=== PATIENT | male | born 1980 | race Caucasian/White ===

== ENCOUNTER 2017-09-08 18:24 | Emergency (ER) | payer SELFPAY ==
[~2017-09-08] VITALS: Ht 177.8 cm; Wt 95.9 kg
[2017-09-08 18:29] VITALS: Ht 177.8 cm; Wt 95.9 kg
[2017-09-08] MEDS ORDERED: DIPHTH/TET/ACEL PERTUSS (ADULT) 0.5 ML VIAL IM* ONE (20:30)
[2017-09-08] MEDS ORDERED: CEPHALEXIN 500 MG CAP PO ONE (20:30)
[2017-09-08] MEDS ORDERED: LIDOCAINE 1% (MDV) 20 ML INJ SC ONE (20:30)
[2017-09-08] MEDS ORDERED: TRIMETHOPRIM/SULFAMETHOX (DS) TAB PO ONE (20:30)
[2017-09-08] MEDS ORDERED: SULF1TAB31 PO (20:35)
[2017-09-08] MEDS ORDERED: CEPH-443 PO (20:35)
--- NOTE | 2017-09-08 22:09 | ERD ---
ER Documentation Chief Complaint Chief Complaint Right hand swelling, and left upper arm swelling. Denies drug use recently HPI 37-year-old male who is currently denying IV drug abuse presents with multiple abscesses, one on the right hand and on the left upper arm. Patient states that he is currently living in a tent, comes in with an abscess that started 5 days ago on his right hand and 2 days ago on his left arm. He does not recall when his last tetanus shot was. He denies fevers or chills, chest pain, shortness of breath. ROS All systems reviewed and are negative except as per history of present illness. Medications Home Meds Active Scripts Sulfamethoxazole/Trimethoprim* (Bactrim Ds* Tablet) 1 Each Tablet, 1 TAB PO BID , #28 TAB Prov:GIANNA GUARDADO PA-C 09/08/17 Cephalexin* (Keflex*) 500 Mg Capsule, 500 MG PO QID for 14 Days, CAP Prov:GIANNA GUARDADO PA-C 09/08/17 Allergies Allergies: Coded Allergies: No Known Allergy (Unverified , 09/08/17) PMhx/Soc History of Surgery: Yes (jaw) Hx Alcohol Use: Yes Hx Substance Use: No Hx Tobacco Use: No Smoking Status: Former smoker Physical Exam Vitals Vital Signs Date Time Temp Pulse Resp B/P Pulse Ox O2 Delivery O2 Flow Rate FiO2 09/08/17 18:29 97.3 98 20 138/83 97 Physical Exam General: Well-developed, well-nourished. The patient appears in no acute distress. HEENT: Head is normocephalic, atraumatic. No scleral icterus. Neck: Supple. Nontender. Lungs: Clear to auscultation. Normal air movement. Heart: Regular rate and rhythm. S1 and S2 are normal. No murmurs, gallops, or rubs. Abdomen: Soft, nontender, nondistended. Bowel sounds are normoactive. Extremities: Large abscess in the left deltoid, there is an area of fluctuance approximately 4 cm with surrounding cellulitis. There is no lymphatic streaking. There is also right hand abscess on the dorsum, there is some induration approximately 3 cm. No lymphatic streaking. Atraumatic. Neurologic: Alert and oriented 3. No focal deficits. Skin: Normal turgor. No rash or lesions. Results 24 hrs Current Medications Medications (Trade) Dose Ordered Sig/Sienna Route PRN Reason Start Time Stop Time Status Last Admin Dose Admin Cephalexin (Keflex) 500 mg ONCE ONCE PO 09/08/17 20:30 09/08/17 20:31 DC 09/08/17 20:37 Trimethoprim/ Sulfamethoxazole (Bactrim (Ds)) 1 tab ONCE ONCE PO 09/08/17 20:30 09/08/17 20:31 DC 09/08/17 20:37 Diphtheria/ Tetanus/Acell Pertussis (Adacel) 0.5 ml ONCE ONCE IM* 09/08/17 20:30 09/08/17 20:31 DC 09/08/17 20:39 Lidocaine (Xylocaine 1% (Mdv) 20 ml) 20 ml ONCE ONCE SC 09/08/17 20:30 09/08/17 20:31 DC Procedures/MDM ED course: Medications given include, Tdap update, Keflex and Bactrim DS. Abscess #1 left deltoid incision and Drainage with irrigation by me: He was verbally consented Location: Left deltoid Anesthesia: Local 1% Lidocaine Technique: Irrigated. Disrupted loculations w/ instrumentation him a copious amount of pus was drained. Packing: None Complications: Neurovascularly intact post procedure Abscess #2, right hand, incision and Drainage with irrigation by me: He was verbally consented Location: Right hand Anesthesia: Local 1% Lidocaine Technique: Incision was made, disrupted loculations with hemostat, no pus was able to be drained, rather copious amount of normal saline was used to irrigate. Packing: None Complications: Neurovascularly intact post procedure 48 hour wound check. Scar minimization instructions given. Patient's skin symptoms have stabilized while they have been evaluated in the department and are appropriate for outpatient care and work up. Exam and w/u not consistent w/ sepsis, deep space infection, or foreign body. Goal decision m[age]-year-old male presents with multiple abscesses, they were incised and drained. The left deltoid was able to be drained well, and was able to remove a large amount of pus. The right hand is a bit early however incision was done given the location and patient's acute presentation on the left upper extremity. Incision was made, drainage was partial and the abscess was irrigated. The patient was given Keflex and Bactrim and is advised to continue these medications and recheck in 24-48 hours. Departure Diagnosis: Primary Impression: Encounter for incision and drainage procedure Additional Impression: Abscess Condition: Good Patient Instructions: Abscess, Incision And Drainage GIANNA GUARDADO PA-C Sep 08, 2017 22:09
== END 2017-09-09 00:46 | disposition home or self-care (01) ==
LOC: FTE 18:24
DX: L02.511 Cutaneous abscess of right hand (principal); Z23 Encounter for immunization; Z87.891 Personal history of nicotine dependence
CPT/HCPCS: 90471; 90715